=== PATIENT | female | born 1955 | race Caucasian/White ===

== ENCOUNTER 2018-09-19 10:09 | Day surgery (SDC) | payer OTHER, SELFPAY ==
--- NOTE | 2018-09-18 16:49 | PCM.HP.BLA ---
History and Physical Date of Admission: 09/19/18 I have re-examined the patient. There are no clinical changes since date of exam. Intake Intake Visit Reasons: LEFT WRIST Chief Complaint: left wrist pain Kenalog (triamcinolone acetonide) 0.5 mg (0.01 mL) Tendon Sheath Inj. ONCE NS HPI LEFT WRIST: Details: Parts of this documentation were recorded by a scribe, this documentation accurately reflects the service provided and the decisions made by me, Britany Mcdonough, 08/24/18 0949. GISELLA MONTELONGO is a 63 year old F here today for surgery consent, she is scheduled for 09/19/18. She has no changes in pain since last visit. Ortho Exam Right Wrist/Hand Skin/Wound: Yes Swelling Left Wrist/Hand Skin/Wound: Yes Swelling Left Wrist: Yes Luca's Test Assessment & Plan Problems 1. Tenosynovitis, de Quervain M65.4 Plan Reviewed the pre-operative plans with the patient. Risks and benefits of the procedure were fully explained, including but not limited to infection, neurovascular injury, continued pain, arthritis, stiffness, need for further surgery, re-injury, DVT, PE, general risks of anesthesia, and loss of limb or life. The patient understands all the risks and does wish to proceed with written consent. Follow up post op or sooner if pain, swelling, numbness or associated symptoms, or concerns develop. All questions answered. Patient in agreement of plan. Coding Level of Care Code Off vis,est,level 2 Diagnoses Tenosynovitis, de Quervain M65.4
[2018-09-19 10:30] VITALS: BP 122/69; PULSE 93; RESP 16; TEMP 36.6; O2SAT 98; BMI 26.3
--- NOTE | 2018-09-19 10:33 | DCINST_ITS ---
Discharge Diet: No Restrictions - keep incision clean and dry, call with concerns, follow up in 2 weeks Discharge Activity: May Not Drive May shower in (days): 1 Ice area for (Minutes): 20 - Every hour while awake. Weight Bearing Status: Weight bearing as tolerated Keep extremity elevated above heart level: Operative Extremity Call your doctor if your incision/area has: Continuous Slow Oozing, Sudden Increased Bleeding, Increased Pain/ Swelling, Increased Redness, Foul Smelling Discharge Call your doctor if you observe: Fever of 101 or Higher, Coldness, Increased Pain, Numbness or Tingling, Change in Color, Calf discomfort Allergies/Adverse Reactions: Allergies azithromycin Allergy (Verified 09/12/18 09:06) Hives magnesium Allergy (Verified 09/12/18 09:16) Itching Medications to take at Discharge Ascorbic Acid [Vitamin C] 1,000 mg PO DAILY 09/12/18 Cholecalciferol (Vitamin D3) [Vitamin D3] 5,000 unit PO DAILY 09/12/18 Cinnamon Bark [Cinnamon] 2 cap PO DAILY 09/12/18 Estradiol [Estrace Vaginal Cream] 1 dose VAGINAL MOWEFR 09/12/18 Ezetimibe/Simvastatin [Vytorin 10-20 mg Tablet] 1 each PO DAILY 09/12/18 Fluticasone 0.05% [Flonase Nasal Buhler] 1 spray NASAL BID 09/12/18 Ginkgo Biloba 120 mg PO DAILY 09/12/18 Krill/[place]-3/Dha/Epa/Lipids [[place]-3 Krill Oil 500 mg Sfgl] 1 each PO DAILY 09/12/18 Lactobacillus Combo No.11 [Probiotic] 1 each PO DAILY 09/12/18 Methenamine Hippurate [Hiprex] 1 gm PO DAILY 09/12/18 Multivitamin [Multiple Vitamins] 1 each PO DAILY 09/12/18 Turmeric Root Extract [Turmeric] 500 mg PO DAILY 09/12/18 Ubidecarenone [Co Q-10] 200 mg PO DAILY 09/12/18 Primary Care Physician: Regina Acevedo DO [Primary Care Provider] - Test Results: Test results from this visit will be discussed in further detail at your follow- up appointment, if applicable. Please Follow Up With: Britany Mcdonough DO - [phone]
--- NOTE | 2018-09-19 10:33 | OP.PCM_ITS ---
Report of Operation Date of Procedure: 09/19/18 Pre-Operative Diagnosis: left dequervains Post-Operative Diagnosis: same Surgery/Procedure Performed:: LEFT FIRST DORSAL EXTENSOR WRIST RELEASE glass lined tank repairer: Aries Oquendo Type of Anesthesia:: Sunny Sampson Anesthesiologist: Master Chua Estimated Blood Loss (mL): MINIMAL Fluids Replaced: 500CC LR Description of Procedure: Preop note Patient is a 63-year-old female with continued left dorsal radial first compartment de Quervain's pain. Patient failed conservative treatment. Patient failed conservative treatment elected proceed with surgical intervention for the first dorsal compartment of the wrist release. Wrist benefits alternatives surgery discussed with patient. Risks including but not limited to blood loss, blood clot, infection, neurovascular, failure procedure, loss of life and loss of limb. Patient is aware like proceed with left first dorsal compartment release. Operative note Patient seen and examined preoperative holding area. Left wrist was marked. Patient brought to the operating placed supine the operating table. Sign, anesthesia, antibiotics were administered. The left arm was prepped and draped usual sterile fashion with a tourniquet around her upper right upper arm as Sunny block was initiated. We marked out our incision over the radial styloid for first dorsal compartment release. Timeout was performed. We then use a 15 blade to dissect gently through the skin protect the neurovascular structures dissected down with tenotomies the level of the first juanjo juanjo was then released we then brought the tendon out of the skin to ensure that we had both tendons were able to excursion be brought out of the incision with no catching we then irrigated the incision with copious muscle sterile saline. The incision was closed with interrupted nylon sutures. Sterile dressings were applied. Patient tolerated procedure well no comp occasions transferred recovery room in stable condition. Total working tourniquet time was 12 minutes Next Postoperative note Use hand as tolerated keep incision clean and dry next Follow-up in 2 weeks for suture removal next Call with increased pain numbness tingling or further issues arise Dragon disclaimer This note was generated with [employer] dictation software. It may contain incorrect words, spelling, and punctuation that were not noted in checking the note before signing.
[2018-09-19] MEDS: Cefazolin 2 GM in 0.9% Normal Saline 100 ML IV (11:04)
[2018-09-19] MEDS: Mupirocin Ointment 22gm Tube 1 APPLIC (11:20)
[2018-09-19 11:38] VITALS: BP 122/69; BP 126/75; PULSE 77; RESP 16; TEMP 36.4; O2SAT 96
[2018-09-19 11:40] VITALS: BP 116/77; BP 122/69; PULSE 73; RESP 16; O2SAT 96
[2018-09-19 11:45] VITALS: BP 122/69; BP 124/85; PULSE 73; RESP 16; O2SAT 96
[2018-09-19 11:50] VITALS: BP 117/83; BP 122/69; PULSE 74; RESP 16; O2SAT 97
[2018-09-19 11:55] VITALS: BP 122/69; BP 122/93; PULSE 72; RESP 16; TEMP 36.2; O2SAT 96
[2018-09-19] MEDS: HYDROcodone Bitartrate/Apap 5/325 Tablet PO (12:11)
== END 2018-09-19 12:25 | disposition home or self-care (01) ==
LOC: SDC 10:12 → AC 10:13
PROVIDERS: Referring Provider Orthopaedic Surgery; Visit Provider Orthopaedic Surgery
PROC: (CPT 64721; principal; 2018-09-19 11:30)
DX: M65.4 Radial styloid tenosynovitis [de Quervain] (principal); E78.00 Pure hypercholesterolemia, unspecified; Z87.440 Personal history of urinary (tract) infections
CPT/HCPCS: 01810; 25000; J7120; J2405